=== PATIENT | female | born 1965 ===

== ENCOUNTER 2018-03-15 17:08 | Emergency (ER) | payer OTHER ==
[2018-03-15 17:18] VITALS: BP 151/90; PULSE 94; RESP 18; TEMP 98; O2SAT 100
[2018-03-15] MEDS ORDERED: Tdap Vaccine 0.5 ml Vial (10-64 yrs) IM ONE (17:58)
--- NOTE | 2018-03-15 18:12 | ED PDOC ---
Upper Extremity Pain/Injury Time Seen by Provider: 03/15/18 17:11 Chief Complaint (Nursing): Abnormal Skin Integrity Chief Complaint (Provider): Left Hand Laceration History Per: Patient History/Exam Limitations: no limitations Onset/Duration Of Symptoms: Days Current Symptoms Are (Timing): Still Present Quality: "Pain" Additional Complaint(s): 52 year old female presents to ED for an evaluation of left hand injury. Patient states earlier today, at work she cut her left index finger while cooking. There is a L-shaped laceration noted on her left hand. Denies fever, headache, or another other injuries. PMD: No Family Provider Past Medical History Reviewed: Historical Data, Nursing Documentation, Vital Signs Vital Signs: Last Vital Signs Temp 98 F 03/15/18 17:15 Pulse 94 H 03/15/18 17:15 Resp 18 03/15/18 17:15 BP 151/90 H 03/15/18 17:15 Pulse Ox 100 03/15/18 17:15 - Medical History PMH: No Chronic Diseases - Surgical History Surgical History: No Surg Hx - Family History Family History: States: Unknown Family Hx - Social History Current smoker - smoking cessation education provided: No Alcohol: None Drugs: Denies - Allergies Allergies/Adverse Reactions: Allergies Allergy/AdvReac Type Severity Reaction Status Date / Time No Known Allergies Allergy Verified 03/15/18 17:10 Review of Systems ROS Statement: Except As Marked, All Systems Reviewed And Found Negative Constitutional: Negative for: Fever Skin: Positive for: Other (laceration on left 2nd digit) Neurological: Negative for: Headache Physical Exam - Reviewed Nursing Documentation Reviewed: Yes Vital Signs Reviewed: Yes - Physical Exam Appears: Positive for: Non-toxic, No Acute Distress Head Exam: Positive for: ATRAUMATIC, NORMAL INSPECTION, NORMOCEPHALIC Skin: Positive for: Normal Color, Warm, Dry Eye Exam: Positive for: Normal appearance Extremity: Positive for: Normal ROM (limited ROM of left 2nd digit possibly due to pain or tendon injury), Tenderness (1.5cm L-shapped laceration on left 2nd digit, middle phalanx), Other (non pulsatile bleeding on left hand) Neurologic/Psych: Positive for: Alert, Oriented (x3) - ECG O2 Sat by Pulse Oximetry: 100 (RA) Pulse Ox Interpretation: Normal Medical Decision Making Medical Decision Making: Time: 1758 Initial Impression: laceration on left 2nd digit Initial Plan: --Adacel (10-65 yrs) 0.5ml IM Due to possibility of tendon injury, Dr. Shetty, plastic surgeon, who evaluated pt. Pt. evaluated by Dr. Shetty in ED who performed tendon and laceration repair in ED. Scribe Attestation: Documented by Jamari Oh, acting as a scribe for Richard Carrington PA-C. Provider Scribe Attestation: All medical record entries made by the Scribe were at my direction and personally dictated by me. I have reviewed the chart and agree that the record accurately reflects my personal performance of the history, physical exam, medical decision making, and the department course for this patient. I have also personally directed, reviewed, and agree with the discharge instructions and disposition. Disposition - Clinical Impression Clinical Impression: Finger laceration involving tendon - Patient ED Disposition Is Patient to be Admitted: No - Disposition Referrals: Yasmine Shetty MD [Medical Doctor] - Disposition: Routine/Home Disposition Time: 19:13 Condition: STABLE Additional Instructions: FOLLOW UP WITH DR. SHETTY ON SATURDAY WITHOUT FAIL PAULA DUNBAR, thank you for letting us take care of you today. Your provider was Bere Medellin MD and you were treated for LT FINGER INJURY. The emergency medical care you received today was directed at your acute symptoms. If you were prescribed any medication, please fill it and take as directed. It may take several days for your symptoms to resolve. Return to the Emergency Department if your symptoms worsen, do not improve, or if you have any other problems. Please contact your doctor or call one of the physicians/clinics you have been referred to that are listed on the Patient Visit Information form that is included in your discharge packet. Bring any paperwork you were given at discharge with you along with any medications you are taking to your follow up visit. Our treatment cannot replace ongoing medical care by a primary care provider outside of the emergency department. Thank you for allowing the [facility] team to be part of your care today. If you had an X-Ray or CT scan: A Radiologist will review the ED reading if any change in treatment is needed we will contact you. If you had a blood, urine, or wound culture: It will take several days for the results, if any change in treatment is needed we will contact you. If you had an STI test: It will take 48 hours for the results. Please call after 1 week if you have not heard back. Instructions: Tendon Repair, Laceration Repair With Stitches (DC) Forms: [employer] (Albanian) Print Language: LEBANESE
--- NOTE | 2018-03-18 07:16 | OP ---
PROCEDURE DATE: 03/15/2018 PREOPERATIVE DIAGNOSES: 1. A 2 cm left index finger dorsal laceration. 2. Left index finger ulnar and lateral band of the extensor digitorum communis tendon laceration. POSTOPERATIVE DIAGNOSES: 1. A 2 cm left index finger dorsal laceration. 2. Left index finger ulnar and lateral band of the extensor digitorum communis tendon laceration. PROCEDURE PERFORMED: As follows: 1. Repair of left index finger extensor digitorum communis tendon. 2. Complex repair of 2 cm left index finger laceration. ANESTHESIA: Regional. 1. Left index finger radial digital nerve block. 2. Left index finger ulnar digital nerve block. INDICATION FOR PROCEDURE: As follows: This is a 52-year-old right-hand dominant female, who works at [employer], who presented to the emergency room with her boss after she cut the left index finger dorsum with a knife at work. It was right over the extensor tendon. There was active bleeding. She placed a tourniquet. The finger was consulted by the ER for possible tendon laceration. On physical exam, the patient was grossly able to flex and extend the left index finger, but it was limited secondary to pain and swelling. However, on the left index finger dorsum over the middle phalanx, there was a 2-cm laceration with irregular skin edges that were devitalized that was right overlying the ulnar lateral band. The bones were nontender. She was neurovascularly intact to the volar sides. She was able to flex the finger indicating grossly intact FDP and FDS tendon, and she was able to extend the finger, but it was limited. However, based on the anatomy, I explained to the patient and her boss that she could have partially or completely lacerated her extensor tendon. I would explore it first in the ER and if it possible, . If it has lacerated the tendon, it would require splinting for an extended amount of time and possibly a therapy in the future and secondary procedure. They understood this and wished to proceed. There were no other injuries to any other hands. There was no x-ray done and the bones were nontender. DESCRIPTION OF PROCEDURE: As follows: A 0.5% Marcaine mixed with 1% lidocaine was used in the left index finger radial and ulnar digital nerve block. After allowing sufficient time for the anesthetic to take effect, the area was thoroughly irrigated and soaked in normal saline and diluted with Betadine. The area was prepped and draped in the usual clean and sterile manner. Tourniquet was placed at the base of the left index finger, which I removed at the end of the case. I made the incision larger to explore. I debrided the irregular and contused skin edges. I then explored the wound. The ulnar lateral band was partially evulsed and lacerated and repaired with 5-0 Monocryl suture. I then debrided the skin edges, undermined it to take the tension off the wound and closed the skin with 4-0 Prolene suture in interrupted fashion. I then placed Xeroform, dry sterile dressing, Marcelina wrap. We removed the tourniquet, fabricated and secured. A left wrist volar splint with left wrist extended in the second and third fingers at 0 degree at the MCP and IP joints. Once the splint hardened, I allowed the patient to move. She was then discharged from the emergency room in stable condition with instruction to keep the splint on and dry, and arm elevated. Follow up with me and likely need for therapy afterwards. Yasmine Shetty MD
== END 2018-03-15 19:42 | disposition home or self-care (01) ==
LOC: H.ER 17:08
DX: S61.211A Laceration without foreign body of left index finger without damage to nail, initial encounter (principal); W26.0XXA Contact with knife, initial encounter; Z23 Encounter for immunization